=== PATIENT | male | born 1995 | race Caucasian/White ===

== ENCOUNTER 2017-02-28 02:32 | Emergency (ER) | payer OTHER ==
[~2017-02-28] VITALS: Ht 182.9 cm; Wt 70.3 kg
[~2017-02-28 02:32] MED LIST: FEXO1TAB49 PO; TRIA1SPR4 NAE
[2017-02-28 02:37] VITALS: TEMP 36.8; Ht 182.9 cm; Wt 70.3 kg
[2017-02-28] MEDS ORDERED: CEPHALEXIN 500MG HOME PACK 1 EA BTL PO ONE (02:45)
[2017-02-28] MEDS ORDERED: SEPTRA DS HOME PACK 1 EA VIAL PO ONE (02:45)
[2017-02-28] MEDS ORDERED: CEPH500C2 PO (03:07)
[2017-02-28] MEDS ORDERED: SULF800T23 PO (03:07)
[2017-02-28 03:14] VITALS: BP 148/81; PULSE 78; O2SAT 100
--- NOTE | 2017-02-28 04:04 | EMERGENCY ROOM VISIT NOTE ---
History First contact with patient: 02:40 Chief Complaint: RASH Stated Complaint: RASH ON LEFT THIGH History of Present Illness The patient is a 21 year old male who presents to the Emergency Room with complaints of redness and swelling to the left eye after he picked up pimple a few days ago. He states he noticed a marked bearing picked at it. Since then the redness has increased and is now tracking up to his groin region. Patient denies nausea, vomiting, diarrhea, urinary symptoms, fever, chills. He is tolerated by mouth fluids and food. No history of MRSA. No known insect bite or tick bite. Tetanus is current. Review of Systems See HPI for pertinent positives & negatives. A total of 6 systems reviewed and were otherwise negative. Past Medical/Surgical History none Social History Smoking Status: Never Smoker Smokeless Tobacco Use: No Alcohol Use: occasionally Drug Use: none Marital Status: single Occupation Status: [employer] Current/Historical Medications Scheduled Cephalexin Monohydrate (Keflex), 500 MG PO QID Sulfa/Trimethoprim (Bactrim Ds 800MG/160MG), 1 TAB PO BID Allergies Coded Allergies: No Known Allergies (Unverified , 07/17/16) Physical Exam Vital Signs Date Time Temp Pulse Resp B/P Pulse Ox O2 Delivery O2 Flow Rate FiO2 02/28/17 03:14 78 16 148/81 100 02/28/17 02:37 36.8 81 18 161/84 98 Room Air Pain Rating (0-10): 0 Physical Exam VITALS: Vitals are noted on the nurse's note and reviewed by myself. Vital signs stable. GENERAL: Pleasant male, in no acute distress, nondiaphoretic, well-developed well-nourished. SKIN: Capillary reflex less than 2 seconds. Left thigh with papular that is open with surrounding erythema concerning for cellulitis that is tracking up to his groin region 6 cm x 8 cm with left inguinal lymph node enlargement. No palpable abscess or fluctuance HEENT: Normocephalic. PERRLA. EOMI. Nares patent. Mucous membranes moist. Neck is supple without nuchal rigidity. HEART: Regular rate and rhythm without murmurs gallops or rubs. LUNGS: Clear to auscultation bilaterally without wheezes, rales or rhonchi. No retractions or accessory muscle use. ABDOMEN: Positive bowel sounds x 4. Normal tympanic percussion. Soft, nontender, without masses or organomegaly. Ferreira sign negative. No guarding or rebound tenderness. MUSCULOSKELETAL: No gross musculoskeletal defects. No pedal edema. No calf tenderness. NEURO: Patient was alert and oriented to person place and time. Normal sensation to light and sharp touch. No focal neurological deficits. Medical Decision & Procedures Medications Administered Medications (Trade) Dose Ordered Sig/Evans Route Start Time Stop Time Status Last Admin Dose Admin Cephalexin Monohydrate (Keflex 500MG Home Pack) 1 homepack NOW ONCE PO 02/28/17 02:45 02/28/17 02:46 DC 02/28/17 03:11 1 HOMEPACK Trimethoprim/ Sulfamethoxazole (Sulfameth/ Trimeth Ds 800/ 160MG Home Pack) 1 homepack UD ONCE PO 02/28/17 02:45 02/28/17 02:46 DC 02/28/17 03:11 1 HOMEPACK ED Course Prior records reviewed and summarized as above. Triage Nursing notes reviewed. The patient's history was concerning for swelling and redness of the skin. Differential diagnosis: Etiologies such as cellulitis, abscess, MRSA infection, DVT, necrotizing fasciitis, dermatitis, drug eruption, as well as others were entertained.. Physical examination: The physical examination was consistent with cellulitis ER treatment provided: Keflex, Bactrim On reassessment the patient felt better. Diagnostics interpreted by me: Patient refused IV antibiotics and blood work. This appears to be isolated cellulitis. Patient was offered IV antibiotics and blood work and declined. I felt this is reasonable. He was young healthy male who is afebrile and nontoxic and was not vomiting. Patient states his tetanus is current. He denies anything biting him. No known tick bite to the area. He was advised to follow-up health services in 2 days for a recheck or here in the ER sooner for spreading of infection, fevers, vomiting, worsening signs or symptoms or as needed. He was advised to take medications as directed and not to pick at the area. By the evaluation outlined above emergent etiologies such as abscess, necrotizing fasciitis, DVT, as well as others were deemed relatively unlikely. The pt informed about the findings as listed above. All questions were answered and pleased with the treatment. Return instructions were outlined and the patient was discharged in stable condition. Outpatient prescription management: Keflex, Bactrim Referral: The patient was referred back to primary care physician for follow-up in 2 to 3 days for a recheck of the current condition. Medical Decision As above Impression Primary Impression: Cellulitis of left thigh Departure Information Dispostion Home / Self-Care Condition GOOD Prescriptions Sulfa/Trimethoprim (Bactrim Ds 800MG/160MG) Tab 1 TAB PO BID for 9 Days, #18 TAB Prov: Noelle Dempsey .SELVIN 02/28/17 Cephalexin Monohydrate (KEFLEX) 500 Mg Cap 500 MG PO QID for 9 Days, #36 CAP Prov: Noelle Dempsey .SELVIN 02/28/17 Forms WORK / SCHOOL INSTRUCTIONS, HOME CARE DOCUMENTATION FORM, IMPORTANT VISIT INFORMATION Patient Instructions Cellulitis - [facility], [facility] Additional Instructions Cephalexin(Keflex) 500mg: Take one pill four times daily for 10 days for your skin infection. All antibiotics can cause diarrhea. If this occurs and you feel worse or it does not resolve in 1-2 days follow up with your doctor or return to the Emergency Department as this could be signs of serious underlying problems. Any medication can cause an allergic reaction, stop the pills immediately and return to the ER for rash, hives, breathing difficulties, or swelling. Trimethoprim-Sulfamethoxazole(Bactrim DS): Take one pill twice daily for 10 days for your skin infection. All antibiotics can cause diarrhea. If this occurs and you feel worse or it does not resolve in 1-2 days follow up with your doctor or return to the Emergency Department as this could be signs of serious underlying problems. Any medication can cause an allergic reaction, stop the pills immediately and return to the ER for rash, hives, breathing difficulties, or swelling. Ibuprofen(Motrin, Advil) may be used for fever or pain. Use 600mg every six hours as needed. Take with food. Avoid using more than 2400mg in a 24 hour period. Do not use 2400mg per day for more than three consecutive days without physician direction. Prolonged inappropriate use can lead to stomach upset or ulcers. (AND/OR) Acetaminophen(Tylenol) may be used for fever or pain. Use 1000mg every six hours as needed. Avoid using more than 3000mg in a 24 hour period. Warm compresses to the affected area 4 times daily for 15-20 minutes. Rest and drink plenty of fluids. Continue current medications. Return to the ER for severe pain, persistent fevers, spreading redness, or any worsening of your condition. Follow up with your primary physician within 2-3 days for a recheck of the current condition.
== END 2017-02-28 03:16 | disposition home or self-care (01) ==
LOC: C.EDB 02:34
DX: L03.116 Cellulitis of left lower limb (principal)